=== PATIENT | female | born 1965 | race Caucasian/White ===

== ENCOUNTER 2018-04-19 09:40 | Emergency (ER) | payer BC ==
[2018-04-19 09:58] VITALS: BP 127/86
--- NOTE | 2018-04-19 10:20 | UC ---
Back Pain HPI - HPI Summary HPI Summary: Approximately 4 week history of progressive back pain, worse on the right side, with radiation to the right outer thigh. Disruptive of sleep. Has not used any pain medications as she prefers not to use analgesics. Has history of repeated kidney infections over her lifetime, the last being several years ago. Came today with renal infection as her main concern. She has no history of stones, and UA today is completely normal. Hx of thoracic disk rupture in her teen years, and this feels nothing like it. - History of Current Complaint Chief Complaint: [facility]CGU Stated Complaint: LOWER BACK PAIN Time Seen by Provider: 04/19/18 10:02 Hx Obtained From: Patient Onset/Duration: Gradual Onset, Lasting Weeks - 4 Timing: Intermittent, Lasting Hours Severity Initially: Moderate Severity Currently: Severe Pain Intensity: 9 Back Pain: Is Diffuse, Radiates To - right outer thigh Character: Aching, Spasmodic Aggravating Factor(s): Other - certain positions cause pain, such as sitting for a long time. Alleviating Factor(s): Position - standing relieves. Associated Signs And Symptoms: Positive: Flank Pain. Negative: Numbness, Tingling, Bladder Incontinence, Bowel Incontinence - Risk Factors AAA Risk Factors: Negative TAD Risk Factors: Negative Cauda Equina Risk Factors: Negative Epidural Abscess Risk Factors: Negative - Allergies/Home Medications Allergies/Adverse Reactions: Allergies Allergy/AdvReac Type Severity Reaction Status Date / Time No Known Allergies Allergy Verified 04/19/18 09:55 Home Medications: Home Medications Zonisamide [Zonegran] 100 mg PO DAILY 04/19/18 [History Confirmed 04/19/18] PMH/Surg Hx/FS Hx/Imm Hx Previously Healthy: Yes - Overweight, does not exercise Neurological History: Seizures - has approximately one per month, primarily in her sleep - Surgical History Surgical History: None - Family History Known Family History: Positive: Other - No history of stones or renal disease - Social History Lives: With Family Alcohol Use: Rare Substance Use Type: None Smoking Status (MU): Never Smoked Tobacco Review of Systems All Other Systems Reviewed And Are Negative: Yes Constitutional: Positive: Fatigue Skin: Positive: Negative Eyes: Positive: Negative ENT: Positive: Negative Respiratory: Positive: Negative Cardiovascular: Positive: Negative Gastrointestinal: Positive: Negative Genitourinary: Positive: Negative Motor: Positive: Negative Neurovascular: Positive: Negative Musculoskeletal: Positive: Myalgia Neurological: Positive: Negative Psychological: Positive: Negative Is Patient Immunocompromised?: No Physical Exam Triage Information Reviewed: Yes Appearance: Well-Appearing, Pain Distress - moderate, uncomfortable with some maneuvers., Obese Vital Signs: Initial Vital Signs Temp 98 F 04/19/18 09:51 Pulse 84 04/19/18 09:51 Resp 16 04/19/18 09:51 BP 127/86 04/19/18 09:51 Pulse Ox 99 04/19/18 09:51 ENT: Positive: Pharynx normal Neck: Positive: Supple, Nontender, No Lymphadenopathy Respiratory: Positive: Lungs clear, Normal breath sounds Cardiovascular: Positive: RRR, No Murmur Abdomen Description: Positive: Nontender, No Organomegaly, Soft. Negative: CVA Tenderness (R), CVA Tenderness (L) Musculoskeletal Exam: Other - slow gait, full spinal range of motion, with FF to 70 degrees, can hyperextend. + SLR on the right at 30 degrees. No crossed leg SLR Left knee with scar Musculoskeletal: Positive: Strength Intact, ROM Intact Neurological Exam: Other - normal right DTR of the knee, absent on the left. Normal muscle tone. Neurological: Positive: Alert, Muscle Tone Normal Psychological Exam: Normal Skin Exam: Normal Back Pain Course/Dx - Course Course Of Treatment: Declined analgesics. Given renal history, advised follow up with Dr. Limon to consider renal imaging. - Differential Dx/Diagnosis Differential Diagnosis/HQI/PQRI: Herniated Disc, Renal Colic, Strain, Sprain Provider Diagnosis: Right flank pain Discharge - Sign-Out/Discharge Documenting (check all that apply): Patient Departure All imaging exams completed and their final reports reviewed: No Studies - Discharge Plan Condition: Stable Disposition: HOME Patient Education Materials: Back Pain (ED) Referrals: Varsha Card MD [Primary Care Provider] - Additional Instructions: As discussed, your clinical exam is suggestive of lumbar disk herniation. Given your history, I suggest follow up with Dr. Limon to decide if renal imaging is advisable. You have a referral to physical therapy. You can use ibuprofen 600mg for control of pain. - Billing Disposition and Condition Condition: STABLE Disposition: Home
== END 2018-04-19 11:30 | disposition home or self-care (01) ==
LOC: UCEAST 09:40
DX: R10.9 Unspecified abdominal pain (principal); M54.5 Low back pain
CPT/HCPCS: 81003; 99201; G0463